=== PATIENT | female | born 2000 | race Caucasian/White ===

== ENCOUNTER → 2020-08-06 08:41 | Outpatient (BNVA) | payer BC, MEDICAID, SELFPAY | PROVIDERS: Family Provider Nurse Practitioner Family; PCP Nurse Practitioner Family; Visit Provider Obstetrics & Gynecology | DX: Z01.419 Encounter for gynecological examination (general) (routine) without abnormal findings (principal); Z12.4 Encounter for screening for malignant neoplasm of cervix; Z30.017 Encounter for initial prescription of implantable subdermal contraceptive | CPT/HCPCS: 81025; 87491; 87591; 88175 ==

== ENCOUNTER → 2020-08-12 14:49 | Outpatient (BNVA) | payer BC, MEDICAID, SELFPAY | PROVIDERS: Family Provider Nurse Practitioner Family; PCP Nurse Practitioner Family; Visit Provider Nurse Practitioner Family | DX: R53.83 Other fatigue (principal) | CPT/HCPCS: 80053; 82306; 82607; 84443; 85025 ==